=== PATIENT | male | born 1970 | race Caucasian/White ===

== ENCOUNTER 2017-12-17 01:21 | Emergency (ER) | payer OTHER ==
[2017-12-17] MEDS: morphine 10 MG INJ IM (02:24)
== END 2017-12-17 04:07 | disposition home or self-care (01) ==
LOC: E/R 01:21
DX: S42.331A Displaced oblique fracture of shaft of humerus, right arm, initial encounter for closed fracture (principal); S42.344A Nondisplaced spiral fracture of shaft of humerus, right arm, initial encounter for closed fracture; I10 Essential (primary) hypertension; E11.9 Type 2 diabetes mellitus without complications; W06.XXXA Fall from bed, initial encounter; Y92.9 Unspecified place or not applicable
CPT/HCPCS: 73030; 73030-RT; 73060-RT; 96372; 99284-25